=== PATIENT | female | born 1945 | race Caucasian/White ===

== ENCOUNTER 2023-11-12 00:11 | Emergency (ER) | payer MEDICARE ==
[~2023-11-12] VITALS: Ht 152.4 cm; Wt 63.5 kg
[2023-11-12] MEDS: IBUPROFEN 600 MG TABLET PO ONE (02:04)
[2023-11-12] MEDS: HYDROCODONE/ACETAMINOPHEN 5/325 MG TAB PO ONE (02:04)
[2023-11-12] MEDS ORDERED: HYDR-4064 PO (03:25)
[2023-11-12] MEDS ORDERED: MELO-108 PO (03:25)
[2023-11-12 03:45] VITALS: BP 146/77; PULSE 84; RESP 16; O2SAT 97
== END 2023-11-12 03:46 | disposition home or self-care (01) ==
LOC: EDH 00:11
DX: S42.201A Unspecified fracture of upper end of right humerus, initial encounter for closed fracture (principal); S43.004A Unspecified dislocation of right shoulder joint, initial encounter; S80.211A Abrasion, right knee, initial encounter; E03.9 Hypothyroidism, unspecified; I10 Essential (primary) hypertension; E78.00 Pure hypercholesterolemia, unspecified; Z96.642 Presence of left artificial hip joint; Z96.651 Presence of right artificial knee joint; W01.0XXA Fall on same level from slipping, tripping and stumbling without subsequent striking against object, initial encounter; Y93.89 Activity, other specified; Y92.89 Other specified places as the place of occurrence of the external cause; Y99.8 Other external cause status
CPT/HCPCS: 23650; 70450; 72125; 73020; 73030; 73070; 73200; 73562